=== PATIENT | male | born 1980 | race Caucasian/White ===

== ENCOUNTER 2023-09-11 13:47 | Emergency (ER) | payer OTHER ==
[~2023-09-11] VITALS: Ht 172.7 cm; Wt 91.0 kg
[2023-09-11 14:03] VITALS: TEMP 98; O2SAT 99
[2023-09-11] MEDS ORDERED: DICYCLOMINE 10 MG/5 ML ORAL SYR PO STA (14:23)
[2023-09-11 14:32] LABS: BASOPHILS % 0.6 % (0.0-2.0); HEMATOCRIT. 50.4 % (42.0-52.0); LYMPHOCYTES % 26.4 % (20.0-50.0); MEAN CORPUSCULAR HEMOGLOBIN 31.4 pg (28.0-32.0); MEAN CORPUSCULAR HGB CONC 33.8 g/dL (31.0-37.0); MEAN PLATELET VOLUME 8.9 fl (7.4-10.4); MONOCYTES % 8.3 % (2.0-8.0); NEUTROPHILS % 61.7 % (40.0-76.0); PLATELET 208 x1000/uL (130-400); RED BLOOD CELL COUNT 5.42 mill/uL (4.7-6.1); RED CELL DISTRIBUTION WIDTH 13.7 % (11.6-14.6)
[2023-09-11 14:41] LABS: CARBON DIOXIDE 26 mEq/L (21-32); CHLORIDE 106 mEq/L (98-107); POTASSIUM 3.7 mEq/L (3.5-5.1); SODIUM 141 mEq/L (136-145)
[2023-09-11 14:42] LABS: CALCIUM 9.9 mg/dL (8.7-10.4)
[2023-09-11 14:47] LABS: CREATININE 1.3 mg/dL (0.6-1.3); GLUCOSE 107 mg/dL (70-105); UREA NITROGEN BLOOD 14 mg/dL (9-23)
[2023-09-11 14:48] LABS: ALBUMIN 4.8 g/dL (3.2-4.8)
[2023-09-11 14:49] LABS: ALANINE AMINOTRANSFERASE 93 IU/L (10-49); ASPARTATE AMINOTRANSFERASE 50 IU/L (<34); BILIRUBIN DIRECT 0.3 mg/dL (<=3.0); BILIRUBIN TOTAL 1.2 mg/dL (0.1-1.0); PROTEIN TOTAL 7.5 g/dL (6.0-8.3)
[2023-09-11 14:55] VITALS: BP 108/78; PULSE 86; RESP 18
[2023-09-11] MEDS: ONDANSETRON 4MG ODT PO STA (14:55)
[2023-09-11] MEDS: MAGNESIUM/ALUMINUM HYDROXIDE/SIMETHICONE 30ML UDC PO STA (14:55)
[2023-09-11] MEDS: KETOROLAC 30MG/ML VIAL IM STA (14:55)
[2023-09-11] MEDS: DICYCLOMINE HCL 10MG CAPSULE PO NR (14:59)
[2023-09-11 15:00] LABS: CLARITY URINE CLEAR (CLEAR); COLOR URINE YELLOW (YELLOW); GLUCOSE URINE NEGATIVE (NEGATIVE); KETONES URINE TRACE (NEGATIVE); LEUKOCYTE ESTERASE URINE NEGATIVE (NEGATIVE); NITRITE URINE NEGATIVE (NEGATIVE); OCCULT BLOOD URINE TRACE (NEGATIVE); PROTEIN URINE NEGATIVE (NEGATIVE); SPECIFIC GRAVITY URINE 1.023 (1.005-1.030); UROBILINOGEN URINE 0.2 E.U./dL (0.2-1.0)
[2023-09-11 15:18] LABS: BACTERIA URINE FEW; RBC URINE 0-2 /hpf (0-2); SQUAMOUS EPITHELIAL CELL URINE FEW /lpf (RARE/1+); WBC URINE 0-2 /hpf (0-2); YEAST URINE NONE SEEN
[2023-09-11] MEDS ORDERED: FAMO-135 MT (15:29)
[2023-09-11] MEDS ORDERED: DIPH1TAB24 MT (15:29)
[2023-09-11] MEDS: DIPHENOXYLATE/ATROPINE 2.5/0.025MG TABLET PO ONE (15:37)
== END 2023-09-11 15:55 | disposition home or self-care (01) ==
LOC: ER 13:47
DX: K29.70 Gastritis, unspecified, without bleeding (principal); Z90.49 Acquired absence of other specified parts of digestive tract
CPT/HCPCS: 80076; 80048; 81003; 83690; 85025; 36415; 96372; 99284; Q0162; J1885; Z7610